=== PATIENT | female | born 1980 ===

== ENCOUNTER 2020-11-14 14:19 | Outpatient (CLI) | payer BC | END 2020-11-14 14:35 | disposition home or self-care (01) | LOC: MAMO-SONO 14:19 | PROVIDERS: ATTEND Obstetrics & Gynecology | DX: N64.89 Other specified disorders of breast (principal); Z12.31 Encounter for screening mammogram for malignant neoplasm of breast; N60.11 Diffuse cystic mastopathy of right breast; N60.12 Diffuse cystic mastopathy of left breast ==

== ENCOUNTER 2022-05-06 14:37 | Outpatient (CLI) | payer BC | END 2022-05-06 14:40 | disposition home or self-care (01) | LOC: MAMO-SONO 14:37 | PROVIDERS: ATTEND Obstetrics & Gynecology | DX: Z12.31 Encounter for screening mammogram for malignant neoplasm of breast (principal); N60.11 Diffuse cystic mastopathy of right breast; N60.12 Diffuse cystic mastopathy of left breast ==

== ENCOUNTER 2022-05-24 09:12 | Outpatient (CLI) | payer BC | END 2022-05-24 09:13 | disposition home or self-care (01) | LOC: LAB 09:12 | PROVIDERS: ATTEND Obstetrics & Gynecology | DX: E78.49 Other hyperlipidemia (principal); E03.8 Other specified hypothyroidism; N30.00 Acute cystitis without hematuria; E55.9 Vitamin D deficiency, unspecified; I10 Essential (primary) hypertension ==

== ENCOUNTER 2023-01-07 12:16 | Outpatient (CLI) | payer BC | END 2023-01-07 12:25 | disposition home or self-care (01) | LOC: RAD 12:16 | PROVIDERS: ATTEND Physical Medicine & Rehabilitation | DX: M54.50 Low back pain, unspecified (principal); M25.561 Pain in right knee; M25.562 Pain in left knee ==

== ENCOUNTER 2023-03-10 07:35 | Outpatient (CLI) | payer OTHER | END 2023-03-10 07:44 | disposition home or self-care (01) | LOC: MRI 07:35 | PROVIDERS: ATTEND Physical Medicine & Rehabilitation | DX: M25.561 Pain in right knee (principal) | CPT/HCPCS: 73721 ==

== ENCOUNTER 2024-05-19 14:40 | Outpatient (CLI) | payer OTHER | END 2024-05-19 14:43 | disposition home or self-care (01) | LOC: MAMO-SONO 14:40 | PROVIDERS: ATTEND Obstetrics & Gynecology | DX: N60.11 Diffuse cystic mastopathy of right breast (principal); N60.12 Diffuse cystic mastopathy of left breast ==

== ENCOUNTER 2024-06-18 09:32 | Outpatient (CLI) | payer OTHER ==
[2024-06-18 10:34] LABS: HEMATOCRIT 37.6 % (36.0-45.00); MEAN CELL VOLUME 95.7 fL (80.00-100.00); MEAN CORPUSCULAR HEMOGLOBIN 33.2 pg (27.00-32.0); MEAN CORPUSCULAR HGB CONC 34.7 g/dl (32.0-36.0); PLATELET COUNT 360 K/uL (150-450); RED BLOOD COUNT 3.93 M/uL (4.00-6.00); RED CELL DISTRIBUTION WIDTH 12.8 % (11.5-14.5)
[2024-06-18 11:00] LABS: PH,URINE 6.5 (5.0-8.0); URINE APPEARANCE Clear; URINE BILIRRUBIN Negative (NEGATIVE); URINE BLOOD Negative; URINE COLOR Yellow; URINE GLUCOSE Negative (NEGATIVE); URINE KETONE Negative (NEGATIVE); URINE LEUKOCYTE Negative; URINE NITRATE Negative; URINE PROTEIN Negative (NEGATIVE); URINE UROBILINOGEN 0.2 E.U./dl
[2024-06-18 11:03] LABS: URINE BACTERIA 40.3 uL (0.0-1933); URINE EPITHELIAL CELLS 2.9 uL (0.0-38.8)
[2024-06-18 11:12] LABS: URINE RBC 1.7 uL (0.0-20.8); URINE WBC 1.5 uL (0.0-23.2)
[2024-06-18 11:44] LABS: ALBUMIN 3.8 gm/dL (3.4-5.0); BILIRUBIN TOTAL 1.17 mg/dL (0.3-1.2); CALCIUM 8.7 mg/dL (8.5-10.1); CHOL HDL RATIO 3.5 (0-5.0); CREATININE SERUM 0.61 mg/dL (0.55-1.02); GFR 106.55; GLOBULINA 3.3 G/DL (2.4-3.5); POTASSIUM 4.03 mEq/L (3.5-5.1); TOTAL PROTEIN 7.1 gm/dL (6.4-8.2); TSH 1.35 uIU/mL (0.358-3.74)
== END 2024-06-18 09:45 | disposition home or self-care (01) ==
LOC: LAB 09:32
PROVIDERS: ATTEND Obstetrics & Gynecology
DX: I10 Essential (primary) hypertension (principal); E03.8 Other specified hypothyroidism; N30.00 Acute cystitis without hematuria; E55.9 Vitamin D deficiency, unspecified

== ENCOUNTER 2024-10-05 09:50 | Outpatient (CLI) | payer OTHER | END 2024-10-05 09:52 | disposition home or self-care (01) | LOC: RAD 09:50 | PROVIDERS: ATTEND Orthopaedic Surgery | DX: M17.11 Unilateral primary osteoarthritis, right knee (principal); M17.12 Unilateral primary osteoarthritis, left knee ==